=== PATIENT | male | born 1990 | race American Indian/Alaskan Native ===

== ENCOUNTER 2017-09-17 13:42 | Emergency (ER) | payer MEDICAID ==
[2017-09-17 13:50] VITALS: BP 127/69
[2017-09-17] MEDS ORDERED: FLAGYL PO ONE (17:02)
[2017-09-17] MEDS ORDERED: ZITHROMAX PO ONE (17:02)
[2017-09-17] MEDS ORDERED: XYLOCAINE 1% MPF 5 mL INFILTRATI ONE (17:02)
[2017-09-17] MEDS ORDERED: ROCEPHIN IM ONE (17:02)
--- NOTE | 2017-09-17 17:05 | Emergency Department Report ---
ED Male HPI - General Chief complaint: Urogenital-Male Stated complaint: STD EXPOSURE Time Seen by Provider: 09/17/17 16:58 Source: patient Mode of arrival: Ambulatory Limitations: No Limitations - History of Present Illness Initial comments: Patient is a 26-year-old black male who is complaining of some burning in his throat as well as his penis. Patient states his male partner test positive for STDs chlamydia and gonorrhea. Patient states that a mild sore throat 4 out of 10 in severity. Patient denies any fever. Patient denies any cough nausea vomiting. Patient also has some mild dysuria. Has been no penile discharge. - Related Data Allergies Allergy/AdvReac Type Severity Reaction Status Date / Time No Known Allergies Allergy Unverified 09/17/17 13:47 ED Review of Systems ROS: Stated complaint: STD EXPOSURE Other details as noted in HPI Comment: All other systems reviewed and negative ED Physical Exam - General Limitations: No Limitations General appearance: alert, in no apparent distress - Head Head exam: Present: atraumatic, normocephalic - Eye Eye exam: Present: normal appearance - ENT ENT exam: Present: mucous membranes moist - Neck Neck exam: Present: normal inspection - Respiratory Respiratory exam: Present: normal lung sounds bilaterally. Absent: respiratory distress - Cardiovascular Cardiovascular Exam: Present: regular rate, normal rhythm. Absent: systolic murmur, diastolic murmur, rubs, gallop - GI/Abdominal GI/Abdominal exam: Present: soft, normal bowel sounds - Rectal Rectal exam: Present: deferred - Extremities Exam Extremities exam: Present: normal inspection - Back Exam Back exam: Present: normal inspection - Neurological Exam Neurological exam: Present: alert, oriented X3 - Psychiatric Psychiatric exam: Present: normal affect, normal mood - Skin Skin exam: Present: warm, dry, intact, normal color. Absent: rash ED Course Vital Signs 09/17/17 13:47 Temperature 98.7 F Pulse Rate 73 Respiratory 18 Rate Blood Pressure 127/69 O2 Sat by Pulse 99 Oximetry ED Medical Decision Making - Medical Decision Making Patient is a nonsmoker emergency however he does have Medicaid and there is no co-pay patient will be treated with antibiotics and be discharged home. Critical care attestation.: If time is entered above; I have spent that time in minutes in the direct care of this critically ill patient, excluding procedure time. ED Disposition Clinical Impression: Exposure to STD Disposition: DC-01 TO HOME OR SELFCARE Is pt being admited?: No Does the pt Need Aspirin: No Condition: Stable Instructions: Sexually Transmitted Diseases (ED), Safe Sex (ED)
== END 2017-09-17 17:55 | disposition home or self-care (01) ==
LOC: ED 13:42
DX: Z20.2 Contact with and (suspected) exposure to infections with a predominantly sexual mode of transmission (principal)
CPT/HCPCS: 87591; 96372; 99282; J0696